=== PATIENT | male | born 1995 | race Caucasian/White ===

== ENCOUNTER 2019-06-04 16:45 | Emergency (ER) | payer BC ==
[2019-06-04] MEDS ORDERED: FLUORESCEIN NA 1 EA STRIP OD ONE (16:46)
[2019-06-04] MEDS ORDERED: TETRACAINE 0.5% HCL 0.6ML DROPPER.BOTTLE OD ONE (16:47)
[2019-06-04] MEDS ORDERED: TETRACAINE 0.5% OPHTH SOLN 2 ML BOTTLE ONE (16:49)
[2019-06-04] MEDS ORDERED: FLUORESCEIN NA 1 EA STRIP ONE (16:50)
[2019-06-04 17:03] VITALS: BP 135/89; PULSE 82; TEMP 98.7; BMI 30.1
[2019-06-04] MEDS ORDERED: ERYTHROMYCIN 0.5% OPHTHALMIC OINTMENT 3.5 GM TUBE OD ONE (17:22)
--- NOTE | 2019-06-04 17:22 | PDOC ---
History of Present Illness - General Chief Complaint: Eye Problem Stated Complaint: RT EYE FB SENSATION, INJURY Time Seen by Provider: 06/04/19 16:46 History Source: Patient Exam Limitations: No Limitations - History of Present Illness Initial Comments: 24 yo M with no past medical history presents to the emergency department with right eye foreign body sensation after cracking concrete. The patient states he was wearing his safety glasses chipping at concrete when he felt an immediate FB sensation in the right eye. Denies wearing contact lenses. Per the patient, he washed out his eye for 10-15 minutes with water at home prior to presentation. Denies the following: visual disturbance, headache, diplopia, ears /nose/throat pain, and dizziness/lightheadedness. Currently, he states he feels the FB sensation when he closes his eye and moves the eye in a rotational pattern. Allergies: NKDA Past History - Past Medical History Allergies/Adverse Reactions: Allergies Allergy/AdvReac Type Severity Reaction Status Date / Time No Known Allergies Allergy Verified 06/04/19 16:47 Home Medications: Ambulatory Orders NK [No Known Home Medication] 01/03/14 COPD: No Other medical history: pt denies - Immunization History Immunization Up to Date: Yes - Psycho Social/Smoking Cessation Hx Smoking History: Never smoked Have you smoked in the past 12 months: No Information on smoking cessation initiated: No Hx Alcohol Use: (social) Review of Systems - Review of Systems Able to Perform ROS?: Yes Is the patient limited Turkish proficient: No Constitutional: No: Chills, Diaphoresis, Fever, Weakness HEENTM: Yes: Eye Pain, Tearing. No: Blurred Vision, Recent change in vision, Double Vision, Cataracts, Ear Discharge, Nose Pain, Throat Pain, Mouth Pain Respiratory: No: Cough, Shortness of Breath, Hemoptysis Cardiac (ROS): No: Chest Pain, Lightheadedness, Palpitations, Chest Tightness ABD/GI: No: Constipated, Diarrhea, Nausea, Rectal Bleeding, Vomiting, Tarry Stools : No: Burning, Dysuria, Hematuria Musculoskeletal: No: Back Pain, Joint Pain, Neck Pain Integumentary: No: Bruising, Erythema, Rash Neurological: No: Headache, Numbness, Tremors Psychiatric: No: Change in Appetite Endocrine: No: Unexplained Weight Loss Hematologic/Lymphatic: No: Anemia *Physical Exam - Vital Signs Last Vital Signs Temp Pulse Resp BP Pulse Ox 98.7 F 82 18 135/89 100 06/04/19 16:45 06/04/19 16:45 06/04/19 16:45 06/04/19 16:45 06/04/19 16:45 - Physical Exam General Appearance: Yes: Nourished, Appropriately Dressed. No: Apparent Distress, Intoxicated HEENT: positive: EOMI, BELIA, Normal ENT Inspection, Normal Voice, Symmetrical, TMs Normal, Pharynx Normal, Hearing Grossly Normal, Other (patient has intact visual de guzman and no visual acuity deficit. using fluorescein stain, a pinpoint defect was noted in the cornea in the center consistent with abrasion. on eyelid eversion, no FB noted. Patient has negative siedel test. ). negative: Pale Conjunctivae, Scleral Icterus (R), Scleral Icterus (L), Muffled/Hoarse voice, Pharyngeal Erythema, Tonsillar Exudate, Tonsillar Erythema, Nasal Congestion, Rhinorrhea, Sinus Tenderness, Excessive drooling Neck: positive: Trachea midline, Supple. negative: Tender, Lymphadenopathy (R) , Lymphadenopathy (L) Respiratory/Chest: positive: Lungs Clear, Normal Breath Sounds. negative: Chest Tender, Respiratory Distress, Accessory Muscle Use Cardiovascular: positive: Regular Rhythm, Regular Rate, S1, S2. negative: Systolic Murmur Gastrointestinal/Abdominal: positive: Normal Bowel Sounds, Flat, Soft. negative : Tender Musculoskeletal: positive: Normal Inspection. negative: CVA Tenderness, Vertebral Tenderness Extremity: positive: Normal Capillary Refill, Normal Inspection, Normal Range of Motion. negative: Tender Integumentary: positive: Normal Color, Dry, Warm Neurologic: positive: Alert ED Treatment Course - Medications Given in the ED: ED Medications Discontinued Medications Generic Name Dose Route Start Last Admin Trade Name Freq PRN Reason Stop Dose Admin Fluorescein Sodium 1 ea 06/04/19 16:46 06/04/19 16:54 Fluorets - OD 06/04/19 16:47 1 ea ONCE ONE Administration Tetracaine HCl 1 drop 06/04/19 16:47 06/04/19 16:55 Tetravisc 0.5% Eye Drops - OD 06/04/19 16:48 1 drop ONCE ONE Administration Medical Decision Making - Medical Decision Making Patient presents to the emergency department with FB sensation. No FB was noted on eyelid eversion with pinpoint abrasion noted after staining Patient had erythromycin ointment applied after saline irrigation. The eye was then subsequently patched. Patient was given strict return precautions and driven home by his family member. He was given a referral to see Dr. Orlando in the morning. Dispo: Discharge Discharge - Discharge Information Problems reviewed: Yes Clinical Impression/Diagnosis: Acute right eye pain, Corneal abrasion Condition: Stable Disposition: HOME - Admission No - Follow up/Referral Referrals: Davion Escobar MD [Staff Physician] - - Patient Discharge Instructions Patient Printed Discharge Instructions: DI for Corneal Abrasion Additional Instructions: You were seen in the emergency department for the evaluation of your right eye pain. It was found on examination that you have a corneal abrasion likely secondary from a rock. There was no sighting of a rock or foreign body when the eye lid was examined. Please maintain the patch until tomorrow morning. If you continue to have pain or swelling in the eye, please contact the eye doctor noted in the discharge paperwork for urgent evaluation. Thank you. - Post Discharge Activity Work/Back to School Note: Back to Work
--- NOTE | 2019-06-04 17:23 | PDOC ---
History of Present Illness - General Chief Complaint: Eye Problem Stated Complaint: RT EYE FB SENSATION, INJURY Time Seen by Provider: 06/04/19 16:46 History Source: Patient Exam Limitations: No Limitations Past History - Past Medical History Allergies/Adverse Reactions: Allergies Allergy/AdvReac Type Severity Reaction Status Date / Time No Known Allergies Allergy Verified 06/04/19 16:47 Home Medications: Ambulatory Orders NK [No Known Home Medication] 01/03/14 COPD: No Other medical history: pt denies - Immunization History Immunization Up to Date: Yes - Psycho Social/Smoking Cessation Hx Smoking History: Never smoked Have you smoked in the past 12 months: No Information on smoking cessation initiated: No Hx Alcohol Use: (social) *Physical Exam - Vital Signs Last Vital Signs Temp Pulse Resp BP Pulse Ox 98.7 F 82 18 135/89 100 06/04/19 16:45 06/04/19 16:45 06/04/19 16:45 06/04/19 16:45 06/04/19 16:45 ED Treatment Course - Medications Given in the ED: ED Medications Discontinued Medications Generic Name Dose Route Start Last Admin Trade Name Freq PRN Reason Stop Dose Admin Fluorescein Sodium 1 ea 06/04/19 16:46 06/04/19 16:54 Fluorets - OD 06/04/19 16:47 1 ea ONCE ONE Administration Tetracaine HCl 1 drop 06/04/19 16:47 06/04/19 16:55 Tetravisc 0.5% Eye Drops - OD 06/04/19 16:48 1 drop ONCE ONE Administration Discharge - Discharge Information Condition: Stable - Follow up/Referral - Patient Discharge Instructions - Post Discharge Activity
[2019-06-04] MEDS ORDERED: ERYTHROMYCIN 0.5% OPHTHALMIC OINTMENT 3.5 GM TUBE ONE (17:25)
--- NOTE | 2019-06-04 17:50 | PDOC ---
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 Persistent pain. No change in vision. Was working around cement. No sharp or penetrating objects. - Physicial Exam PE: 06/04/19 17:46 Physical: Alert, mild distress due to right eye irritation PERRLA, fundi benign. Conjunctiva mildly injected without ciliary flush. Normal turgor of the eye. EOMs full without diplopia. Visual de guzman intact to confrontation. Anesthetized with tetracaine. Fluorescein instilled. A pinpoint defect was noted in the mid cornea, which appeared to be an abrasion. No definite foreign body could be visualized - Medical Decision Making 06/04/19 17:48 Assessment: Probable foreign body was initially present, became dislodged, left a small abrasion/ulceration Plan: Eye was copiously irrigated with saline. Erythromycin ointment was applied, and the eye was patched in the comfortable, close position. The patient was in no pain afterwards. He is being driven home by his He is instructed to rest the eye and leave the patch in place overnight, and have the area rechecked by Dr. Orlando, steam generating powerplant mechanic, in the morning to ensure that healing has occurred. Fully ambulatory and in no pain or other distress at discharge to follow-up as directed
== END 2019-06-04 17:40 | disposition home or self-care (01) ==
LOC: FER 16:45
DX: S05.01XA Injury of conjunctiva and corneal abrasion without foreign body, right eye, initial encounter (principal); H57.11 Ocular pain, right eye; X58.XXXA Exposure to other specified factors, initial encounter; Y93.89 Activity, other specified; Y92.89 Other specified places as the place of occurrence of the external cause
CPT/HCPCS: 99283-25

== ENCOUNTER 2021-04-12 20:32 | Emergency (ER) | payer BC ==
[2021-04-12 20:48] VITALS: BP 139/88; PULSE 96; TEMP 98.6; BMI 29.4
[2021-04-12] MEDS ORDERED: ACETAMINOPHEN 500 MG TABLET (FP) PO ONE (21:16)
[2021-04-12] MEDS ORDERED: ACETAMINOPHEN 500 MG TABLET (FP) ONE (21:29)
== END 2021-04-12 22:00 | disposition home or self-care (01) ==
LOC: JER 20:32
DX: H92.01 Otalgia, right ear (principal)
CPT/HCPCS: 99283-25